=== PATIENT | female | born 1995 | race Caucasian/White ===

== ENCOUNTER 2018-06-24 08:43 | Emergency (ER) | payer MEDICAID ==
[~2018-06-24] VITALS: Ht 157.5 cm; Wt 54.4 kg
[~2018-06-24 08:43] MED LIST: SERT100T PO
[2018-06-24 08:50] VITALS: BP_SYST 138
--- NOTE | 2018-06-24 08:55 | NUR ---
Pt placed in bed 3
[2018-06-24] MEDS ORDERED: NACL 0.9% 1,000 ML IV ONE (09:00)
[2018-06-24] MEDS ORDERED: KETOROLAC TROMETHAMINE 30 MG VIAL IVP ONE (09:00)
[2018-06-24] MEDS ORDERED: ONDANSETRON HCL 4 MG/2 ML VIAL IVP ONE (09:00)
--- NOTE | 2018-06-24 09:00 | NUR ---
Patient arrived via POV, AAOx4, and ambulatory with steady gait. Patient c/o of upper abdominal discomfort and frequent diarrhea and vomiting. States vomiting and diarrhea onset was 0600. Patient states she has had a cholecystectomy in the past, and she has made no dietary modifications. Patient states ongoing diarrhea for the past year. Patient resting comfortably, able to communicate in full sentences, and has no complaints or indications of distress. Will continue to follow up and monitor.
--- NOTE | 2018-06-24 09:10 | NUR ---
ER at bedside examining patient.
[2018-06-24 09:28] LABS: BASOPHILS % (AUTO) 0.2 % (0.0-2.0); EOSINOPHILS % (AUTO) 0.1 % (0.0-4.0); HEMATOCRIT 41.9 % (36-48); HEMOGLOBIN 14.2 g/dL (12.0-16.0); LYMPHOCYTES # (AUTO) 1.1 K/uL (1.0-5.5); LYMPHOCYTES % (AUTO) 9.8 % (20.5-51.5); MEAN CORPUSCULAR HEMOGLOBIN 29 pg (27-31); MEAN CORPUSCULAR HGB CONC 34 % (32-36); MEAN CORPUSCULAR VOLUME 87 fL (79.0-98.0); MONOCYTES # (AUTO) 0.5 K/uL (0.0-1.0); MONOCYTES % (AUTO) 4.6 % (1.7-9.3); NEUTROPHILS # (AUTO) 9.3 K/uL (1.8-7.7); NEUTROPHILS % (AUTO) 85.3 % (40.0-70.0); PLATELET COUNT (AUTO) 275 K/uL (130-430); RED BLOOD CELL COUNT(AUTO) 4.83 MIL/uL (4.2-6.2); RED CELL DISTRIBUTION WIDTH 12.3 % (9.0-15.0); WHITE BLOOD COUNT (AUTO) 10.9 K/uL (4.8-10.8)
[2018-06-24 09:40] LABS: CALCIUM 9.7 mg/dL (8.4-11.0); CREATININE 0.79 mg/dL (0.55-1.30); POTASSIUM 4.2 mmol/L (3.5-5.1)
[2018-06-24 09:44] LABS: ALBUMIN 4.7 g/dL (3.4-4.8); TOTAL BILIRUBIN 1.5 mg/dL (0.0-1.0)
--- NOTE | 2018-06-24 09:47 | NUR ---
Patient refusal of pain medication at this time, patient states no pain. Given zofran for nausea and vomiting.
[2018-06-24 09:59] LABS: BILIRUBIN,URINE 2+ (NEGATIVE); BLOOD, URINE 1+ (NEGATIVE); CLARITY/URINE SL HAZY (CLEAR); COLOR,URINE YELLOW (YELLOW); GLUCOSE,URINE NEGATIVE (NEGATIVE); KETONES,URINE 3+ (NEGATIVE); LEUKOCYTE ESTERASE ,URINE 1+ (NEGATIVE); NITRITE, URINE NEGATIVE (NEGATIVE); PH,URINE 5.5 (5.0-8.0); PROTEIN URINE 1+ (NEGATIVE); UROBILINOGEN,URINE 0.2 (0.2-1.0)
[2018-06-24 11:14] LABS: BACTERIA,URINE FEW /HPF (None Seen)
--- NOTE | 2018-06-24 11:29 | NUR ---
Pt returned from radiology in stable condition
[2018-06-24] MEDS ORDERED: cefTRIAXone 1 GM IVPB PREMIX 50 ML IV ONE (13:15)
[2018-06-24 13:52] VITALS: BP_SYST 130
--- NOTE | 2018-06-24 13:52 | NUR ---
Patient given written and verbal discharge instructions and verbalizes understanding. ER MD discussed with patient the results and treatment provided. Patient in stable condition. ID arm band removed. IV catheter removed intact and dressing applied, no active bleeding. Rx of Rantidine, [place], Keflex, Zofran given. Patient educated on pain management and to follow up with PMD. Pain Scale 0/10. Opportunity for questions provided and answered. Medication side effect fact sheet provided.
== END 2018-06-24 13:52 | disposition home or self-care (01) ==
LOC: SED 08:43
DX: K52.9 Noninfective gastroenteritis and colitis, unspecified (principal); N39.0 Urinary tract infection, site not specified; K91.5 Postcholecystectomy syndrome; Z88.5 Allergy status to narcotic agent
CPT/HCPCS: 36415; 74176; 80053; 81000; 81025; 83690; 85025; 87086; 96361; 96365; 96375; 99284; J0696; J2405; J7030; J1885

== ENCOUNTER 2019-07-04 16:41 | Emergency (ER) | payer MEDICAID, OTHER ==
[~2019-07-04] VITALS: Ht 160 cm; Wt 61.2 kg
[2019-07-04 16:54] VITALS: BP_SYST 123
--- NOTE | 2019-07-04 16:58 | NUR ---
Patient triaged and placed in waiting room. VSS and patient appears in no acute distress at this time. Accompanied by , awaiting available bed, and MD notified of need for MSE.
--- NOTE | 2019-07-04 17:01 | NUR ---
Patient to ER bed 07 to gown for evaluation. Side rails up. Report given to AMOS GARCIA
--- NOTE | 2019-07-04 17:02 | NUR ---
PATIENT BROUGHT IN WITH COMPLAINING OF FEVER OF 102 TODAY, VOMITING X 2 EPISODES, RIGHT FLANK PAIN, DIARRHEA, LIGHTHEADEDNESS AND HEADACHE. DENIES ANY DYSURIA. PAIN 10. PATIENT WAS SEEN BY URGENT CARE TODAY. PATIENT REPORTS INFLUENZA SWAB WAS NEGATIVE AND URINALYSIS WAS NEGATIVE. NO OTHER COMPLAINTS/INJURIES PER PATIENT OR NOTED. WILL CONTINUE TO MONITOR
--- NOTE | 2019-07-04 17:32 | NUR ---
ER at bedside examining patient.
[2019-07-04] MEDS ORDERED: PROCHLORPERAZINE EDISYLATE 10 MG/2 ML VIAL IM ONE (17:45)
[2019-07-04] MEDS ORDERED: KETOROLAC TROMETHAMINE 60 MG/2 ML VIAL IM ONE (17:45)
--- NOTE | 2019-07-04 17:58 | NUR ---
Medication administered. Pt tolerated well. No adverse reactions noted.
[2019-07-04 18:13] LABS: BLOOD, URINE 1+ (NEGATIVE); CLARITY/URINE CLEAR (CLEAR); COLOR,URINE YELLOW (YELLOW); GLUCOSE,URINE NEGATIVE (NEGATIVE); KETONES,URINE 1+ (NEGATIVE); LEUKOCYTE ESTERASE ,URINE NEGATIVE (NEGATIVE); NITRITE, URINE NEGATIVE (NEGATIVE); PH,URINE 5.5 (5.0-8.0); PROTEIN URINE NEGATIVE (NEGATIVE); UROBILINOGEN,URINE 0.2 (0.2-1.0)
[2019-07-04 18:20] LABS: BILIRUBIN,URINE NEGATIVE (NEGATIVE)
[2019-07-04 18:36] LABS: BACTERIA,URINE RARE /HPF (None Seen); MUCUS,URINE 3+ /LPF (None Seen); WBC,URINE 0-3 /HPF (0-3)
--- NOTE | 2019-07-04 19:14 | NUR ---
Patient given written and verbal discharge instructions and verbalizes understanding. ER MD Ramirez discussed with patient the results and treatment provided. Patient in stable condition. ID arm band removed. Rx of given. Patient educated on pain management and to follow up with PMD. Pain Scale 0. Opportunity for questions provided and answered. Medication side effect fact sheet provided.
[2019-07-04 19:18] VITALS: BP_SYST 118
== END 2019-07-04 19:14 | disposition home or self-care (01) ==
LOC: SED 16:41
DX: B34.9 Viral infection, unspecified (principal)
CPT/HCPCS: 71045; 81000; 81025; 96372; 99284; J0780; J1885